=== PATIENT | female | born 1975 | race Caucasian/White ===

== ENCOUNTER → 2021-05-17 15:55 | Outpatient (CLI) | payer OTHER, SELFPAY ==
--- NOTE | ~2021-05-17 | CT_ITS ---
EXAMINATION: CT sinus wo con DATE: 05/17/2021 16:10 INDICATION: Chronic sinusitis TECHNIQUE: Computed tomography (CT) of the paranasal sinuses was performed without contrast. Iterativ e reconstruction technique was employed. Exam dose: 302.13 mGy-cm total exam DLP. COMPARISON: None FINDINGS: There is leftward deviation of the nasal septum. There is mild intralamellar cell of both middle nasal turbinates. The nasal turbinates are prominent but symmetric in size. The ostiomeatal units are patent. There is minimal mucoperiosteal thickening of the right maxillary sinus. The paranasal sinuses are ot herwise normally developed and aerated. The mastoid air cells are normally developed and aerated. Middle and inner ear apparatus appear normal. IMPRESSION: Leftward deviation of nasal septum Prominence of the nasal turbinates Mild intralamellar cell of both middle nasal turbinates Mild mucoperiosteal thickening of the right maxillary sinus Reviewed, dictated and finalized at [facility]. Reviewed, dictated and finalized at [facility].
== END ==
PROVIDERS: Visit Provider Otolaryngology
DX: J34.2 Deviated nasal septum (principal); J34.3 Hypertrophy of nasal turbinates; J32.0 Chronic maxillary sinusitis
CPT/HCPCS: 70486